=== PATIENT | female | born 1995 | race African-American/Black ===

== ENCOUNTER 2022-12-07 11:03 | Emergency (ER) | payer MEDICAID ==
[~2022-12-07] VITALS: Ht 160 cm; Wt 48.7 kg
[2022-12-07 11:16] VITALS: BP 113/78
[2022-12-07 14:45] LABS: BASOPHILS % 0.3 % (0.0-2.0); EOSINOPHILS % 1.5 % (0.0-5.0); HEMATOCRIT. 39.6 % (36.0-48.0); LYMPHOCYTES % 17.3 % (20.0-50.0); MEAN CORPUSCULAR HEMOGLOBIN 29.9 pg (28.0-32.0); MEAN CORPUSCULAR VOLUME 91.2 fL (81.0-99.0); MEAN PLATELET VOLUME 8.1 fl (7.4-10.4); NEUTROPHILS % 74.9 % (40.0-76.0); PLATELET 332 x1000/uL (130-400); RED BLOOD CELL COUNT 4.34 mill/uL (4.2-5.4)
[2022-12-07 14:48] LABS: HCG SCREEN NEGATIVE
[2022-12-07 14:52] LABS: CHLORIDE 105 mEq/L (98-107)
== END 2022-12-07 15:30 | disposition home or self-care (01) ==
LOC: ER 11:03
DX: R20.2 Paresthesia of skin (principal); Z98.890 Other specified postprocedural states; Z88.0 Allergy status to penicillin
CPT/HCPCS: 36415; 80048; 84443; 84703; 85025; 99284